=== PATIENT | female | born 1980 | race Caucasian/White ===

== ENCOUNTER 2017-07-22 16:40 | Observation (INO) | payer OTHER ==
--- NOTE | 2017-07-22 17:01 | PDOC ---
Rapid Medical Evaluation Time Seen by Provider: 07/22/17 16:55 Medical Evaluation: Allergies Allergy/AdvReac Type Severity Reaction Status Date / Time shellfish derived Allergy Severe anaphylaxis Verified 06/01/15 11:58 07/22/17 16:55 I have performed a brief in-person evaluation of this patient. The patient presents with a chief complaint of syncope x 3 within 5 days. Patient report right shoulder pain, back pain and dizziness since incident. States she was taking her clothes off in the bathroom last night when she felt herself fall backwards then awaken on the floor. Cannot recall hitting the floor. States no dizziness before fall. Seen at [facility] today and referred for evaluation. Pertinent physical exam findings are NAD even and unlabored breathing, lungs clear grossly neurologically intact I have ordered the following Ekg, fsg. labs this patient will proceed to the ED for further evaluation.
[2017-07-22 17:07] VITALS: BMI 35.7
--- NOTE | 2017-07-22 17:12 | PDOC ---
History of Present Illness - General Chief Complaint: Syncope/Near Syncope Stated Complaint: FATIGUE Time Seen by Provider: 07/22/17 16:55 History Source: Patient Exam Limitations: No Limitations - History of Present Illness Initial Comments: 07/22/17 17:22 37yo F with no significant PMH who presents today with multiple episodes of syncope. Pt reports the first episode occurring while walking towards an elevator when she fell and woke up on the floor. Pt does not recall any events inbetween, but did not have any retrograde amnesia prior to the event and states she did not have any symptoms prior to the event occurring. The second episode of syncope happened when she was about to get in the shower when again she had felt herself falling back and woke up on the floor. She reports falling backwards and through part of her wall. Pt endorses lumbar pain currently, however denies any neurological deficits including changes in motor function and changes in sensation. She endorses having heavy and irregular menstral periods and being chronically anemia as well. Pt denies any lightheadedness, incontinence, tongue or lip biting, palpitations, CP/discomfort, SOB, neck pain prior to the fall. Pt also denies any sleep disorders, cardiac disorders, or previous abnormal heart rhythms. Pt also reports going to [facility] where she received an EKG and HCG --HCG was negative --EKG from [facility] reveals NSR @ about [address] interval 102ms, no delta wave, normal axis, normal R-wave progression, no ST abnormalities, Qtc 437 Past History - Past Medical History Allergies/Adverse Reactions: Allergies Allergy/AdvReac Type Severity Reaction Status Date / Time shellfish derived Allergy Severe anaphylaxis Verified 07/22/17 17:02 prednisone Allergy Verified 07/22/17 17:02 Home Medications: Ambulatory Orders NK [No Known Home Medication] 07/22/17 Asthma: Yes Cancer: No Cardiac Disorders: No CVA: No COPD: No Diabetes: No HTN: No Seizures: No Thyroid Disease: No - Immunization History Immunization Up to Date: Yes - Suicide/Smoking/Psychosocial Hx Smoking History: Never smoked Have you smoked in the past 12 months: No Information on smoking cessation initiated: No Hx Alcohol Use: No Drug/Substance Use Hx: No Substance Use Type: None Hx Substance Use Treatment: No Review of Systems - Review of Systems Constitutional: No: Chills, Fever, Malaise, Night Sweats, Weakness HEENTM: No: Eye Pain, Blurred Vision, Ear Pain, Nose Congestion, Hearing Loss, Throat Pain Respiratory: No: Cough, Shortness of Breath, Wheezing Cardiac (ROS): Yes: Syncope. No: Chest Pain, Edema, Irregular Heart Rate, Lightheadedness, Palpitations, Chest Tightness ABD/GI: No: Abdominal Distended, Blood Streaked Bowels, Constipated, Diarrhea, Nausea, Poor Appetite, Poor Fluid Intake, Vomiting, Abdominal cramping : No: Burning, Dysuria, Frequency, Flank Pain, Incontinence Musculoskeletal: Yes: Back Pain. No: Joint Pain, Neck Pain Integumentary: No: Flushing, Lesions, Pallor, Rash Neurological: No: Headache, Numbness, Paresthesia, Tingling, Weakness, Ataxia, Dizziness Psychiatric: No: Anxiety, Depression *Physical Exam - Vital Signs Last Vital Signs Temp Pulse Resp BP Pulse Ox 98.6 F 76 17 123/73 99 07/22/17 16:57 07/22/17 16:57 07/22/17 16:57 07/22/17 16:57 07/22/17 16:57 - Physical Exam Comments: 07/22/17 17:46 GEN: NAD, awake, alert, sitting in bed HEENT: EOMI, JOYCE, no conjunctival pallor, sclera anicteric, moist mucosa Neck: soft, ROM intact, no palpable pain on spinous processes LUNGS: CTA b/l CARDIAC: RRR no murmurs appreciated, no clicks ABD: soft, NT/ND, no bruits auscultated, no guarding, no rebound NEURO: Facial symmetry CNII-XII intact, gait normal, speech normal, strenght 5/ 5 throughout lower and upper extremities, sensation intact in lower and upper extremities, patellar reflexes 2/4, no cerebellar symptoms. EXT: No edema, warm, DP 2+ b/l ED Treatment Course - LABORATORY CBC & Chemistry Diagram: 07/22/17 17:25 07/22/17 17:25 Medical Decision Making - Medical Decision Making 07/22/17 17:58 37yo F with syncopal event without any prodromal symptoms and unwitnessed fall into wall --Most likely cardiac vs anemia in nature --Doubt dehydration; doubt seizure; no valvular abnormalities heard on physical exam CBC, CMP, UA, urine HCG EKG? Head CT noncontrast, Lumbar spine noncontrast (if bHCG negative) Will most likely need tele obs for syncope r/o for continuous teletypesetter monitor --Will probably need Holter on D/C 07/22/17 18:00 CBC unremarkable Coags unremarkable 07/22/17 18:17 UA with negative for uti, nephrotic, and nephritic syndrome BHCG negative 07/22/17 19:[address] by me negative for any acute intracranial pathology CT Lumbar Spine images reviewed; awaiting official reports Will need cardiac monitoring overnight and cardiology eval. 07/22/17 19:11 Complaining of lower back pain after CT --Motrin 600mg PO once No fractures per official reports Spoke with hospitalist to be placed on tele obs for syncope r/o *DC/Admit/Observation/Transfer Diagnosis at time of Disposition: Syncope Qualifiers: Syncope type: unspecified Qualified Code(s): R55 - Syncope and collapse - Discharge Dispostion Disposition: AGAINST MEDICAL ADVICE Condition at time of disposition: Fair Admit: Yes - Referrals - Patient Instructions - Post Discharge Activity
[2017-07-22 17:42] LABS: BASO % 0.7 % (0-2.0); EOS % 1.4 % (0-4.5); HEMATOCRIT 37.9 % (32.4-45.2); HEMOGLOBIN 13.1 GM/dL (10.7-15.3); LYMPH % 25.1 % (8-40); MCH 31.8 pg (25.7-33.7); MCHC 34.7 g/dl (32.0-36.0); MEAN CELL VOLUME 91.6 fl (80-96); MEAN PLT VOLUME 9.9 fl (7.5-11.1); MONO % 6.1 % (3.8-10.2); NEUT % 66.7 % (42.8-82.8); PLATELET COUNT 268 K/MM3 (134-434); RBC 4.13 M/mm3 (3.60-5.2); RDW 12.4 % (11.6-15.6); WHITE BLOOD COUNT 8.3 K/mm3 (4.0-10.0)
[2017-07-22 17:53] LABS: INR 1.03 (0.82-1.09); PROTHROMBIN TIME (PATIENT) 11.6 SEC (9.7-13.0)
[2017-07-22 17:56] LABS: ACTIVATED PTT 33.8 SECONDS (26.9-34.4)
[2017-07-22 18:10] LABS: HCG,QUALITATIVE URINE NEGATIVE; URINE APPEARANCE CLEAR; URINE BILIRUBIN NEGATIVE (NEGATIVE); URINE COLOR YELLOW; URINE GLUCOSE (UA) NEGATIVE (NEGATIVE); URINE KETONE NEGATIVE (NEGATIVE)
[2017-07-22 18:11] LABS: URINE BLOOD NEGATIVE (NEGATIVE); URINE LEUK ESTERASE NEGATIVE (NEGATIVE); URINE NITRITE NEGATIVE (NEGATIVE); URINE PROTEIN NEGATIVE (NEGATIVE); URINE UROBILINOGEN NORMAL (0.2-1.0)
--- NOTE | 2017-07-22 18:19 | PDOC ---
Attending Attestation - Resident Resident Name: Gorge Macedo - ED Attending Attestation I have performed the following: I have examined & evaluated the patient, The case was reviewed & discussed with the resident, I agree w/resident's findings & plan, Exceptions are as noted - HPI HPI: 07/22/17 18:22 87-year-old female presents after having 2 syncopal episodes. She had one while walking to the elevator and went down and then also today she had one where she was trying to get ready to take a shower and fell backwards and actually made an indentation on the plasterboard wall behind her -she States that she has no prodromal symptoms prior to these episodes. This is first time she's had this loss of consciousness. She denies shortness of breath, chest pain, nausea, vomiting, fever or chills. However, she does state she has heavy menstrual periods and does have a history of significant anemia -she has felt great fatigue - Physicial Exam PE: 07/22/17 18:27 wnwd 37 yo female reports 2 recent syncopal episodes -head no abrasions,no hematomas eyes- rita oemi neck -no cervical vertebral tenderness ears -no hemptympanum lungs- cta b/l cvs -no rub,no gallops, cvs [id number] abd - protuberant,nontender extremities -no deformities neuro -axox3,ambulatory 07/22/17 20:07 - Medical Decision Making 07/22/17 20:[address] scan head no acute intracranial pathology 07/23/17 00:53 iNIITALLY PT WAS ADMITTED FOR SYNCOPE BUT SHE DECIDED SHE WANTED TO LEAVE AND LEFT AMA -THE PLAN IS FOR HER TO SEE HER PCP TOMORROW
[2017-07-22 18:21] LABS: ALBUMIN 4.1 g/dl (3.4-5.0); ANION GAP 3 (8-16); BLOOD UREA NITROGEN 9 mg/dL (7-18); CHLORIDE 108 mmol/L (98-107); CO2 27 mmol/L (21-32); CREATININE 0.9 mg/dL (0.55-1.02); GLUCOSE,RANDOM 125 mg/dL (74-106); POTASSIUM 4.1 mmol/L (3.5-5.1); SGOT/AST 31 U/L (15-37); SGPT/ALT 52 U/L (12-78); SODIUM 138 mmol/L (136-145)
[2017-07-22 18:22] LABS: ALK PHOS 87 U/L (45-117); BILIRUBIN,TOTAL 0.3 mg/dL (0.2-1.0); TOT PROT 8.1 g/dl (6.4-8.2)
[2017-07-22] MEDS ORDERED: IBUPROFEN 600 MG TABLET (FP) PO ONE ×2 (19:12→19:30)
--- NOTE | 2017-07-22 19:48 | HP ---
CHIEF COMPLAINT: PCP: HISTORY OF PRESENT ILLNESS: ER course was notable for: (1) (2) (3) Recent Travel: PAST MEDICAL HISTORY: PAST SURGICAL HISTORY: Social History: Smoking: Alcohol: Drugs: Family History: Allergies shellfish derived Allergy (Severe, Verified 07/22/17 17:02) anaphylaxis prednisone Allergy (Verified 07/22/17 17:02) HOME MEDICATIONS: Home Medications Medication Instructions Recorded NK [No Known Home Medication] 07/22/17 REVIEW OF SYSTEMS CONSTITUTIONAL: Absent: fever, chills, diaphoresis, generalized weakness, malaise, loss of appetite, weight change HEENT: Absent: rhinorrhea, nasal congestion, throat pain, throat swelling, difficulty swallowing, mouth swelling, ear pain, eye pain, visual changes CARDIOVASCULAR: Absent: chest pain, palpitations, irregular heart rate, lightheadedness, peripheral edema RESPIRATORY: Absent: cough, shortness of breath, dyspnea with exertion, orthopnea, wheezing, stridor, hemoptysis GASTROINTESTINAL: Absent: abdominal pain, abdominal distension, nausea, vomiting, diarrhea, constipation, melena, hematochezia GENITOURINARY: Absent: dysuria, frequency, urgency, hesitancy, hematuria, flank pain, genital pain MUSCULOSKELETAL: Absent: myalgia, arthralgia, joint swelling, back pain, neck pain SKIN: Absent: rash, itching, pallor HEMATOLOGIC/IMMUNOLOGIC: Absent: easy bleeding, easy bruising, lymphadenopathy, frequent infections ENDOCRINE: Absent: unexplained weight gain, unexplained weight loss, heat intolerance, cold intolerance NEUROLOGIC: Absent: headache, focal weakness or paresthesias, dizziness, unsteady gait, seizure, mental status changes, bladder or bowel incontinence PSYCHIATRIC: Absent: anxiety, depression, suicidal or homicidal ideation, hallucinations. PHYSICAL EXAMINATION Vital Signs - 24 hr 07/22/17 16:57 Temperature 98.6 F Pulse Rate 76 Respiratory 17 Rate Blood Pressure 123/73 O2 Sat by Pulse 99 Oximetry (%) Laboratory Results - last 24 hr 07/22/17 07/22/17 07/22/17 17:25 17:25 17:25 WBC 8.3 RBC 4.13 Hgb 13.1 Hct 37.9 MCV 91.6 MCH 31.8 MCHC 34.7 RDW 12.4 Plt Count 268 D MPV 9.9 Neutrophils % 66.7 Lymphocytes % 25.1 D Monocytes % 6.1 Eosinophils % 1.4 D Basophils % 0.7 PT with INR 11.60 INR 1.03 PTT (Actin FS) 33.8 Sodium 138 Potassium 4.1 Chloride 108 H Carbon Dioxide 27 Anion Gap 3 L BUN 9 Creatinine 0.9 Creat Clearance w eGFR > 60 Random Glucose 125 H Calcium 9.0 Total Bilirubin 0.3 AST 31 ALT 52 Alkaline Phosphatase 87 Total Protein 8.1 Albumin 4.1 Urine Color Urine Appearance Urine pH Ur Specific [place] Urine Protein Urine Glucose (UA) Urine Ketones Urine Blood Urine Nitrite Urine Bilirubin Urine Urobilinogen Ur Leukocyte Esterase Urine HCG, Qual 07/22/17 17:45 WBC RBC Hgb Hct MCV MCH MCHC RDW Plt Count MPV Neutrophils % Lymphocytes % Monocytes % Eosinophils % Basophils % PT with INR INR PTT (Actin FS) Sodium Potassium Chloride Carbon Dioxide Anion Gap BUN Creatinine Creat Clearance w eGFR Random Glucose Calcium Total Bilirubin AST ALT Alkaline Phosphatase Total Protein Albumin Urine Color Yellow Urine Appearance Clear Urine pH 5.0 Ur Specific [place] 1.016 Urine Protein Negative Urine Glucose (UA) Negative Urine Ketones Negative Urine Blood Negative Urine Nitrite Negative Urine Bilirubin Negative Urine Urobilinogen Normal Ur Leukocyte Esterase Negative Urine HCG, Qual Negative ASSESSMENT/PLAN: Problem List - Problem (1) Syncope Code(s): R55 - SYNCOPE AND COLLAPSE Qualifiers: Syncope type: unspecified Qualified Code(s): R55 - Syncope and collapse (2) Anemia Code(s): D64.9 - ANEMIA, UNSPECIFIED (3) Hyperglycemia Code(s): R73.9 - HYPERGLYCEMIA, UNSPECIFIED (4) DVT prophylaxis Code(s): [id number] - Hospitalist Screening - Colonoscopy Questionnaire Colonoscopy Questionnaire: Colonoscopy Questionnaire
[2017-07-22 20:46] VITALS: BP 138/78; PULSE 79; TEMP 98.5
--- NOTE | 2017-07-22 21:24 | DS ---
Physical Exam: SUBJECTIVE: Patient seen, but refused admission and signed AMA OBJECTIVE: Vital Signs Period Temp Pulse Resp BP Sys/Velazquez Pulse Ox Last 24 Hr 98.5 F-98.6 F 67-80 17-18 117-138/54-78 96-99 PHYSICAL EXAM Patient refused LABS Laboratory Results - last 24 hr 07/22/17 07/22/17 07/22/17 17:25 17:25 17:25 WBC 8.3 RBC 4.13 Hgb 13.1 Hct 37.9 MCV 91.6 MCH 31.8 MCHC 34.7 RDW 12.4 Plt Count 268 D MPV 9.9 Neutrophils % 66.7 Lymphocytes % 25.1 D Monocytes % 6.1 Eosinophils % 1.4 D Basophils % 0.7 PT with INR 11.60 INR 1.03 PTT (Actin FS) 33.8 Sodium 138 Potassium 4.1 Chloride 108 H Carbon Dioxide 27 Anion Gap 3 L BUN 9 Creatinine 0.9 Creat Clearance w eGFR > 60 Random Glucose 125 H Calcium 9.0 Total Bilirubin 0.3 AST 31 ALT 52 Alkaline Phosphatase 87 Troponin I Total Protein 8.1 Albumin 4.1 Urine Color Urine Appearance Urine pH Ur Specific [place] Urine Protein Urine Glucose (UA) Urine Ketones Urine Blood Urine Nitrite Urine Bilirubin Urine Urobilinogen Ur Leukocyte Esterase Urine HCG, Qual 07/22/17 07/22/17 17:25 17:45 WBC RBC Hgb Hct MCV MCH MCHC RDW Plt Count MPV Neutrophils % Lymphocytes % Monocytes % Eosinophils % Basophils % PT with INR INR PTT (Actin FS) Sodium Potassium Chloride Carbon Dioxide Anion Gap BUN Creatinine Creat Clearance w eGFR Random Glucose Calcium Total Bilirubin AST ALT Alkaline Phosphatase Troponin I < 0.02 Total Protein Albumin Urine Color Yellow Urine Appearance Clear Urine pH 5.0 Ur Specific [place] 1.016 Urine Protein Negative Urine Glucose (UA) Negative Urine Ketones Negative Urine Blood Negative Urine Nitrite Negative Urine Bilirubin Negative Urine Urobilinogen Normal Ur Leukocyte Esterase Negative Urine HCG, Qual Negative HOSPITAL COURSE: Left Against Medical Advice, before I could examine patient. Risks and Dangers explained to patient, including possible . Patient advised to f/u with her PCP, Cardiology and Neurology Patient verbalized understanding and left ambulatory with spouse Date of Admission:07/22/17 Date of Discharge: 07/22/17 Minutes to complete discharge: 15 Discharge Summary Reason For Visit: SYNCOPE Current Active Problems Anemia (Acute) DVT prophylaxis (Acute) Hyperglycemia (Acute) Syncope (Acute) Condition: Fair - Instructions Referrals: Julio Valera [Primary Care Provider] - Disposition: AGAINST MEDICAL ADVICE - Home Medications Comprehensive Discharge Medication List: Ambulatory Orders NK [No Known Home Medication] 07/22/17 Problem List - Problems (1) Syncope Code(s): R55 - SYNCOPE AND COLLAPSE Qualifiers: Syncope type: unspecified Qualified Code(s): R55 - Syncope and collapse (2) Anemia Code(s): D64.9 - ANEMIA, UNSPECIFIED (3) Hyperglycemia Code(s): R73.9 - HYPERGLYCEMIA, UNSPECIFIED (4) DVT prophylaxis Code(s): [id number] - This patient is new to me today: Yes Date on this admission: 07/22/17 (AMA from ED) Emergency Visit: Yes ED Registration Date: 07/22/17 Care time: The patient presented to the Emergency Department on the above date and was hospitalized for further evaluation of their emergent condition. Critical Care patient: No - Discharge Referral Referred to [facility] No
--- NOTE | 2017-07-23 09:45 | CON.CARD ---
Consult - History of Present Illness History of Present Illness: 37yo F with no significant PMH who presents today with multiple episodes of syncope. Pt reports the first episode occurring while walking towards an elevator when she fell and woke up on the floor. Pt does not recall any events inbetween, but did not have any retrograde amnesia prior to the event and states she did not have any symptoms prior to the event occurring. The second episode of syncope happened when she was about to get in the shower when again she had felt herself falling back and woke up on the floor. She reports falling backwards and through part of her wall. Pt endorses lumbar pain currently, however denies any neurological deficits including changes in motor function and changes in sensation. She endorses having heavy and irregular menstral periods and being chronically anemia as well. Pt denies any lightheadedness, incontinence, tongue or lip biting, palpitations, CP/discomfort, SOB, neck pain prior to the fall. Pt also denies any sleep disorders, cardiac disorders, or previous abnormal heart rhythms. Pt also reports going to [facility] where she received an EKG and HCG --HCG was negative --EKG from [facility] reveals NSR @ about 75 with VT interval 102ms, no delta wave, normal axis, normal R-wave progression, no ST abnormalities, Qtc 437 Past History - Alcohol/Substance Use Hx Alcohol Use: No - Smoking History Smoking history: Never smoked Have you smoked in the past 12 months: No Home Medications - Allergies Allergies/Adverse Reactions: Allergies Allergy/AdvReac Type Severity Reaction Status Date / Time shellfish derived Allergy Severe anaphylaxis Verified 07/22/17 17:02 prednisone Allergy Verified 07/22/17 17:02 - Home Medications Home Medications: Ambulatory Orders NK [No Known Home Medication] 07/22/17 Vital Signs: Vital Signs Temperature 98.5 F 07/22/17 20:46 Pulse Rate 79 07/22/17 20:46 Respiratory Rate 18 07/22/17 20:46 Blood Pressure 138/78 07/22/17 20:46 O2 Sat by Pulse Oximetry (%) 96 07/22/17 20:46 - Other Data Labs, Other Data: CBC, BMP 07/22/17 17:25 07/22/17 17:25 INR, PTT INR 1.03 (0.82-1.09) 07/22/17 17:25 Troponin, BNP 07/22/17 17:25 Troponin I < 0.02 Troponin, BNP 07/22/17 17:25 Troponin I < 0.02
--- NOTE | 2017-07-23 12:02 | EKG ---
Test Reason : Blood Pressure : / mmHG Vent. Rate : 072 BPM Atrial Rate : 072 BPM P-R Int : 120 ms QRS Dur : 084 ms QT Int : 408 ms P-R-T Axes : 037 006 028 degrees QTc Int : 446 ms NORMAL SINUS RHYTHM MINIMAL VOLTAGE CRITERIA FOR LVH, MAY BE NORMAL VARIANT BORDERLINE ECG NO PREVIOUS ECGS AVAILABLE Confirmed by NATALIA FREEMAN MD ([id number]) on 07/23/2017 12:02:01 PM Referred By: Confirmed By:NATALIA FREEMAN MD
== END 2017-07-22 20:46 | disposition left against medical advice (07) ==
LOC: JER 16:40 → JERBED 19:22
PROVIDERS: ADMIT Internal Medicine; ATTEND Internal Medicine
DX: R55 Syncope and collapse (principal); R73.9 Hyperglycemia, unspecified; D64.9 Anemia, unspecified; J45.909 Unspecified asthma, uncomplicated; Z91.013 Allergy to seafood; Z88.8 Allergy status to other drugs, medicaments and biological substances
CPT/HCPCS: 36415; 70450-TC; 72131-TC; 80053; 81003; 84484; 84703; 85025; 85610; 85730; 93005; 93010; 99283-25; G0378